=== PATIENT | female | born 1995 | race Caucasian/White ===

== ENCOUNTER 2020-11-30 19:13 | Inpatient (IN) | payer OTHER, SELFPAY ==
[2020-11-30 19:33] VITALS: BMI 36.6
[2020-11-30] MEDS: Lactated Ringers 1,000 ML 50 ML IV (19:35)
[2020-11-30 19:53] LABS: Absolute Neutrophil Count 8.8 X10^3/uL (2.0-7.7); Basophil# 0.03 X10^3/uL; Basophil% 0.2 % (0-1); Eosinophil# 0.11 X10^3/uL; Eosinophils% 0.9 % (0-5); Hematocrit 34.3 % (37-47); Hemoglobin 11.2 g/dL (12.0-15.0); Lymphocyte % 16.4 % (19-41); Mean Corp Hgb Conc 32.7 g/dL (32-36); Mean Corpuscular Hgb 27.7 pg (27.0-32.0); Mean Corpuscular Volume 84.7 fL (81-99); NRBC Flagged by Analyzer 0 % (0-5); Neutrophil # 8.84 X10^3/uL (2.7-7.7); Neutrophil % 72.8 % (47-70); Platelet Count 227 K/mm3 (150-450); RBC Distribution Width CV 13.1 % (11.6-14.6); RBC Distribution Width SD 40.3 fl (35.1-43.9); Red Blood Count 4.05 M/mm3 (4.2-5.4); White Blood Count 12.2 K/mm3 (4.4-11.0)
[2020-11-30 19:56] VITALS: BP 132/85; PULSE 87; TEMP 37.2; O2SAT 98
[2020-11-30] MEDS: miSOPROStol 25 MCG TABLET VAGINAL (20:24)
[2020-11-30 20:38] LABS: International Normalized Ratio 0.9; Prothrombin Time (Protime)PT. 11.2 SECONDS (11.7-14.9)
[2020-11-30 20:39] LABS: Partial Thromboplast Time 27.4 Seconds (24.1-36.2)
[2020-11-30 20:43] LABS: AST(SGOT) 13 U/L (15-37); Alanine Aminotransfer ALT/SGPT 33 U/L (13-56); Creatinine, Serum 0.57 mg/dL (0.55-1.02); EST Glomerular Filtration Rate 138 mL/min (>60); Est Glom Filt Rate - Afr Amer 167 mL/min (>60); Uric Acid 4.2 mg/dL (2.6-6.0)
[2020-11-30 22:57] VITALS: BP 139/91; PULSE 72; TEMP 37.4; O2SAT 98
[2020-12-01] VITALS (69 sets, daily range): BP systolic 109–141; BP diastolic 55–99; PULSE 64–195; TEMP 36.4–37.7; O2SAT 82–100
[2020-12-01] MEDS: Oxytocin 30 units/NS 500 ml 30 UNITS/500 ML IV.SOLN IV (02:14)
[2020-12-01] MEDS: 0.9% Normal Saline Single 100 ML IV.SOLN. INTRA-UTER (08:10)
[2020-12-01] MEDS: fentaNYL 100 MCG/2 ML Ampul IV ×2 (08:50→10:56)
--- NOTE | 2020-12-01 09:22 | PCM.HP.OB ---
History Date of Admission: 11/30/20 Final RJ: 12/19/20 Final RJ Source: US <20 weeks Gestational age: 37 Weeks and 3 Days History of this : This is a 25 year-old, admitted 11/30/2020 for gestational hypertension due to elevating BPs in for cervical ripening. Denies RAGSDALE, visual changes or epigastric pain. Good Fm. No VB/LOF. was uncomplicated to date. Allergies No Known Allergies Allergy (Verified 11/30/20 20:04) Home Medications: Home Medications Vits [Prenatabs FA] 1 tablet PO DAILY 11/30/20 Smoking Status: Former smoker History Past Pregnancies: Past Pregnancies Delivery Date Name GA/ Weeks Outcome Route Wt Infant Sex Labor Length Anesthesia Delivery Location Provider FOB Expected Delivery Method: Spontaneous Vaginal Review of Systems Constitutional: Denies: Anorexia, Chills, Fever Eyes: Denies: Blurred vision Cardiovascular: Denies: Chest Pain Respiratory: Denies: Cough, Shortness of Breath Gastrointestinal: Denies: Diarrhea Gynecological: Denies: Vaginal itching Skin: Denies: Rash Neurological: Denies: Balance problems, Blurred vision Hematologic/ Lymphatic: Denies: Hx of blood clot Physical Exam Vitals: Vital Signs Temp Pulse BP Pulse Ox 99.6 F H 71 138/88 H 99 12/01/20 07:17 12/01/20 08:00 12/01/20 08:00 12/01/20 08:00 General: Alert, Cooperative, No apparent distress Cardiovascular: Regular rate Lungs: Normal air movement Abdomen: Soft, Non Tender, Non-Distended, Gravid Neurological: Cranial nerves II-XII grossly intact, Neuro grossly intact SCAFFOLDING HELPER: Normal external genitalia Estimated gestational size: Appropriate for gestational size Presentation: Cephalic Assessment/Plan This is a 25 year-old, 2 para 0 now at 37-2/7 weeks gestation admitted for induction of labor. Risk benefits and alternatives to induction were discussed with patient by Dr. Curtis and patient desired to proceed. Patient had Cytotec throat ripening overnight. Now has a cervical Beaver. Will initiate Pitocin as well. Estimated weight is less than 4500 g and pelvis is clinically adequate to expect vaginal delivery. May have epidural as needed for pain control. No evidence of preeclampsia.
[2020-12-01] MEDS: Ondansetron 4 MG/2 ML Vial IV (12:50)
[2020-12-01] MEDS: Lactated Ringers 500 ML 999 ML IV (12:59)
[2020-12-01] MEDS: fentaNYL-bupivacaine (epidural) 100 ML BAG EPIDURAL ×2 (13:37→18:20)
[2020-12-01] MEDS: Lactated Ringers 1,000 ML 200 ML IV (15:46)
--- NOTE | 2020-12-01 21:35 | PLAC_PTH ---
PATIENT: JEANETH PINA LOC: [facility] U#:[id number] AGE/SX: 25/F ROOM: WP003 RE11/30/[address]: Dr. Cher Xiong MD : 1995 BED: 1 DIS: 12/03/2020 SPEC #: [id number] RECD: 12/01/20 22:19 STATUS: SVEN REMariella #: [id number] MARY KAY: 12/01/20 21:[address]: Cher Xiong DEPT: SURGICAL PATHOLOGY RECD BY: Margarita Rodriguez ENTERED: 12/02/20 06:51 SP TYPE: PLACENTA OTHR DR: No Primary Care Phys Tissues: Placenta, NOS Procedures: Surgery Specimen Level V HEADER OPERATION: Vaginal delivery PRE-OP DIAGNOSIS: Gestational hypertension TISSUE SUBMITTED: Placenta MICROSCOPIC DIAGNOSIS Placenta: Placental disc - third trimester placenta (396 gm). - Focal increased number syncytial knots and focal increased calcifications. Membranes - no pathologic diagnosis. Umbilical cord - three blood vessels and no pathologic diagnosis. SJ:jareth 12/06/2020 MICROSCOPIC DESCRIPTION Slides are reviewed. GROSS DESCRIPTION SPECIMEN: PLACENTA / CLINICAL INFORMATION: A. Weight: 2.78 kg B. Gestational Age: 37 weeks C. Sex: Female PLACENTAL WEIGHT (POST FIXATION): 396 gm PLACENTAL DIMENSIONS: 18 x 16 x 3 cm PLACENTAL SHAPE: Usual ovoid PLACENTAL WEIGHT FOR GESTATIONAL AGE: Within 10-99th percentile MEMBRANES - Present A. Insertion: Marginal B. Site of rupture from edge: 2 cm from edge of placental disc C. Color of membrane: Gibson-haney D. Abnormalities: None UMBILICAL CORD - Present A. Color: Gibson-haney B. Insertion: Eccentric and received in two fragments C. Length: 32 cm D. Diameter: 1.5 cm E. Number of vessels: Three F. Abnormalities: None PLACENTAL DISC - Present A. Color of surface: Gibson-haney B. surface abnormalities: None C. Maternal cotyledons: Intact with minimal tears D. Attached retro placental clot: No clot E. Cut surface: Dark red and spongy F. Lesions: None G. Separate clot: 7 x 5 x 1 cm SECTIONS SUBMITTED: 1. Umbilical cord ( end notched) 2. Umbilical cord, placental end 3. Membrane roll 4. Placental disc, and maternal surfaces 5. Placental disc, and maternal surfaces 6. Placental disc, and maternal surfaces AM:jareth 12/03/20 TC:5 CPT: 00308
[2020-12-01] MEDS: Oxytocin 30 units/NS 500 ml 30 UNITS/500 ML IV.SOLN 334 UNITS IV (21:36)
--- NOTE | 2020-12-01 21:49 | OP.PCM_ITS ---
Vaginal Delivery Maternal Presentation: Medically Indicated Induction Method of Induction: Pitocin, Beaver Bulb, Amniotomy, Cytotec Medical Reason for Induction: Gestational Hypertension Amniotic Membrane Rupture Type: Artificial Amniotic Fluid Description: Clear Final RJ: 12/19/20 Final RJ Source: US <20 weeks Gestational age: 37 Weeks and 3 Days Date of Procedure: 12/01/20 Pre-Operative Diagnosis: maternal exhaustion Post-Operative Diagnosis: same Surgery/ Procedure Performed: Vacuum Assisted Vaginal Delivery - outlet Type of Anesthesia: Epidural Description of Procedure: The patient was complete and pushing for 3-1/2 hours. She pushed to plus 4 out of 5 station and was labia with maternal pushing efforts. There is moderate caput. Position was CRISTOBAL. Head was slightly asynclitic. Estimated fet al weight was less than 4000 g clinically and pelvis was clinically adequate to expect vaginal delivery. Beaver catheter is in place. Epidural was adequate. Response alternatives to trial of vacuum were discussed with the patient and her partner and they desire to proceed. The vacuum was placed on the flexion point and pressure was created 550 mmHg. I pulled with 2 contractions and 1 pop -off. The vacuum was replaced then pulled with 2 more contractions to and the vacuum was removed. Mander the was delivered with maternal pushing efforts only. A vigorous female infant was delivered CRISTOBAL over a second-degree perineal laceration. The remainder the infant was delivered with maternal pushing and gentle traction only in less than 15 seconds. The Pitocin infusion was initiated for active management of the third stage. The cord was clamped and cut after 1 minute. The infant was attended to by the waiting nursing staff. The placenta was delivered spontaneously and intact. The cervix and vagina were intact. The second-degree perineal laceration was repaired with 3-0 Vicryl suture in a running standard fashion. Sponge and needle counts were correct. A vaginal sweep was completed by me. Presentation: CRISTOBAL Placental Delivery Description: Spontaneous Placenta Disposition: Sent to Pathology Cord Vessel Description: 3 Vessels Cord Gases drawn per routine: ABG, VBG Cord Entanglement: None Drain: Beaver to straight drain Estimated Blood Loss: 300 Infant A gender: Female (1 minute): 8 (5 minute): 9 Episiotomy Description: None Laceration: 2nd degree - vaginal Medications given after delivery: IV Pitocin Complications: None
[2020-12-01 22:53] LABS: Pathology Specimen OB SEE PATHOLOGY REPORT
[2020-12-02] MEDS: 0.9% Saline Lock 10 ML Syringe IV (00:22)
--- NOTE | 2020-12-02 01:00 | NURSING ---
Epidural catheter removed. Blue tip intact.
[2020-12-02 02:08] VITALS: BP 133/81; PULSE 103; RESP 16; TEMP 37.1
[2020-12-02 04:08] VITALS: BP 123/81; PULSE 98; RESP 16; TEMP 37.3; O2SAT 97
[2020-12-02 04:27] LABS: Hematocrit 31.4 % (37-47); Hemoglobin 10.3 g/dL (12.0-15.0); Mean Corp Hgb Conc 32.8 g/dL (32-36); Mean Corpuscular Hgb 28.3 pg (27.0-32.0); Mean Corpuscular Volume 86.3 fL (81-99); Platelet Count 185 K/mm3 (150-450); RBC Distribution Width CV 13.1 % (11.6-14.6); RBC Distribution Width SD 40.4 fl (35.1-43.9); Red Blood Count 3.64 M/mm3 (4.2-5.4); White Blood Count 16.5 K/mm3 (4.4-11.0)
--- NOTE | 2020-12-02 07:20 | PCM.PN.OB ---
Subjective: pain well controlled, average lochia - Physical Exam Vitals/I&O's: Vital Signs Temp Pulse Resp BP Pulse Ox 99.1 F 98 16 123/81 H 97 12/02/20 04:08 12/02/20 04:08 12/02/20 04:08 12/02/20 04:08 12/02/20 04:08 Oxygen Delivery Method Room Air Weight: 82.372 kg Body Mass Index (BMI) 36.6 Intake and Output for Last 24 Hours 11/30/20 12/01/20 12/02/20 23:59 23:59 23:59 Intake Total 54.17 / 54.17 3341.66 / 3341.66 333 / 333 Output Total 1000 / 1000 200 / 200 Balance 54.17 / 54.17 2341.66 / 2341.66 133 / 133 General: Alert, Cooperative, No apparent distress Microbiology Past 72 Hours 11/30/20 20:20 Mucosa - Nose SARS-CoV-2 Antigen (Rapid) - Final Laboratory Results 12/02/20 04:15: WBC 16.5 H, RBC 3.64 L, Hgb 10.3 L, Hct 31.4 L, MCV 86.3, MCH 28.3, MCHC 32.8, RDW Std Deviation 40.4, RDW Coeff of Yancy 13.1, Plt Count 185, MPV 11.0 Current Medications Acetaminophen (Acetaminophen 500 Mg Tablet) 1,000 mg PO Q8H PRN PRN PRN Reason: Pain Score 1-3 Bisacodyl (Bisacodyl 10 Mg Suppository) 10 mg RC UD PRN PRN Reason: If no BM Dibucaine (Dibucaine 30 Gm Tube) 1 applic TOPICAL TID PRN PRN; Protocol PRN Reason: Discomfort Hydrocortisone (Hydrocortisone 2.5% Crm) 1 applic TOPICAL TID PRN PRN; Protocol PRN Reason: Discomfort Methylergonovine Maleate (Methylergonovine 0.2 Mg/Ml Ampul) 0.2 mg IM X1 PRN PRN Reason: Excess bleeding/uterine atony Naproxen (Naproxen 250 Mg Tablet) 500 mg PO Q8H PRN PRN PRN Reason: Pain Score 1-3 Ondansetron HCl (Ondansetron 4 Mg/2 Ml Vial) 4 mg IV Q4H PRN PRN PRN Reason: Nausea Oxycodone HCl (Oxycodone 5 Mg Tablet) 5 - 10 mg PO Q4H PRN PRN PRN Reason: Pain Score 4-10 Prochlorperazine Edisylate (Prochlorperazine 10 Mg/2 Ml Vial) 10 mg IV Q6H PRN PRN PRN Reason: NAUSEA/VOMITING Senna/Docusate Sodium (Senna/Docusate Sodium 1 Tablet) 1 - 2 tablet PO DAILY PRN PRN PRN Reason: Constipation Simethicone (Simethicone 80 Mg Tablet) 80 mg PO PCHS PRN PRN Reason: Indigestion/Stomach pain Sodium Chloride (0.9% Saline Lock 10 Ml Syringe) 5 - 15 ml IV UD PRN PRN Reason: SALINE FLUSH Last Admin: 12/02/20 00:22 Dose: 10 ml Documented by: Medical Necessity - Tobacco Use Smoking Status: Former smoker Assessment/Plan PPD#1 s/p vacuum assisted vaginal delivery. Doing well gestational htn-bp stable for now doing well
[2020-12-02 08:30] VITALS: BP 111/70; PULSE 80; RESP 18; TEMP 36.5
[2020-12-02] MEDS: Naproxen 250 MG Tablet 500 MG PO ×2 (08:34→15:51)
[2020-12-02] MEDS: Senna/Docusate Sodium 1 Tablet PO (08:35)
[2020-12-02] MEDS: Dibucaine 30 GM Tube 1 APPLIC TOPICAL (08:35)
[2020-12-02 12:00] VITALS: BP 130/53; PULSE 102; RESP 16; TEMP 36.3
[2020-12-02 16:00] VITALS: BP 117/65; PULSE 85; RESP 16; TEMP 36.3
[2020-12-02 20:07] VITALS: BP 116/67; PULSE 72; RESP 18; TEMP 36.8
[2020-12-03] MEDS: Naproxen 250 MG Tablet 500 MG PO (00:29)
[2020-12-03 02:12] VITALS: BP 115/50; PULSE 57; RESP 16; TEMP 36.1
[2020-12-03 08:00] VITALS: BP 121/73; PULSE 72; RESP 16; TEMP 36.6; O2SAT 98
--- NOTE | 2020-12-03 12:36 | PCM.PN.OB ---
Subjective: Patient seen at bedside. Feeling good. Denies any pain at this time. Ambulating and voiding without difficulty. Denies any headache, vision changes or dizziness. Blood pressures have been within normal range. going well with minimal support. Desires discharge home today. - Physical Exam Vitals/I&O's: Vital Signs Temp Pulse Resp BP Pulse Ox 97.8 F 72 16 121/73 H 98 12/03/20 08:00 12/03/20 08:00 12/03/20 08:00 12/03/20 08:00 12/03/20 08:00 Oxygen Delivery Method Room Air Weight: 181 lb 9.6 oz Body Mass Index (BMI) 36.6 Intake and Output for Last 24 Hours 12/01/20 12/02/20 12/03/20 23:59 23:59 23:59 Intake Total 3341.66 / 3341.66 333 / 333 Output Total 1000 / 1000 1100 / 1100 Balance 2341.66 / 2341.66 -767 / -767 General: Alert, Oriented x3 HEENT: Atraumatic, PERRLA, EOMI, Normocephalic Neck: Supple, No JVD, Negative Carotid Bruits Lungs: Clear to auscultation, Normal air movement Cardiovascular: Regular rate Abdomen: Soft, Non Tender, Passing Flatus Extremities: Edema - 2+ non pitting bilateral feet Skin: No rashes Musculoskeletal: No Tenderness to Palpation of Joints or Extremities Neurological: Cranial nerves II-XII grossly intact Psych/Mental Status: Normal Affect, Appropriate Microbiology Past 72 Hours 11/30/20 20:20 Mucosa - Nose SARS-CoV-2 Antigen (Rapid) - Final Current Medications Acetaminophen (Acetaminophen 500 Mg Tablet) 1,000 mg PO Q8H PRN PRN PRN Reason: Pain Score 1-3 Bisacodyl (Bisacodyl 10 Mg Suppository) 10 mg RC UD PRN PRN Reason: If no BM Dibucaine (Dibucaine 30 Gm Tube) 1 applic TOPICAL TID PRN PRN; Protocol PRN Reason: Discomfort Last Admin: 12/02/20 08:35 Dose: 1 applic Documented by: Hydrocortisone (Hydrocortisone 2.5% Crm) 1 applic TOPICAL TID PRN PRN; Protocol PRN Reason: Discomfort Methylergonovine Maleate (Methylergonovine 0.2 Mg/Ml Ampul) 0.2 mg IM X1 PRN PRN Reason: Excess bleeding/uterine atony Naproxen (Naproxen 250 Mg Tablet) 500 mg PO Q8H PRN PRN PRN Reason: Pain Score 1-3 Last Admin: 12/03/20 00:29 Dose: 500 mg Documented by: Ondansetron HCl (Ondansetron 4 Mg/2 Ml Vial) 4 mg IV Q4H PRN PRN PRN Reason: Nausea Oxycodone HCl (Oxycodone 5 Mg Tablet) 5 - 10 mg PO Q4H PRN PRN PRN Reason: Pain Score 4-10 Prochlorperazine Edisylate (Prochlorperazine 10 Mg/2 Ml Vial) 10 mg IV Q6H PRN PRN PRN Reason: NAUSEA/VOMITING Senna/Docusate Sodium (Senna/Docusate Sodium 1 Tablet) 1 - 2 tablet PO DAILY PRN PRN PRN Reason: Constipation Last Admin: 12/02/20 08:35 Dose: 1 tablet Documented by: Simethicone (Simethicone 80 Mg Tablet) 80 mg PO PCHS PRN PRN Reason: Indigestion/Stomach pain Sodium Chloride (0.9% Saline Lock 10 Ml Syringe) 5 - 15 ml IV UD PRN PRN Reason: SALINE FLUSH Last Admin: 12/02/20 00:22 Dose: 10 ml Documented by: Medical Necessity - Tobacco Use Smoking Status: Former smoker Assessment/Plan PPD 2 Vacuum assisted delivery- 2nd degree Routine care support Discharge home today
--- NOTE | 2020-12-03 12:40 | DCINST_ITS ---
Discharge Diet: No Restrictions May resume sexual activity in: 6-8 weeks Additional Instructions: If you experience any of the following, contact your healthcare provider. * Bleeding that soaks a pad every hour for 2 hours * Fever 100.4 or higher * Unrelieved incision or abdominal pain * Swelling, redness, discharge or bleeding from your incision or episiotomy site * Your incision begins to separate * Problems urinating (including inability to urinate or burning while urinating). * Visual changes * Severe headache * Flu-like symptoms * Pain or redness in one of both of your breasts * Pain, warmth, tenderness or swelling in your legs, especially the calf area * Frequent nausea and vomiting * Symptoms of depression or anxiety If you experience any of the following, call 911 or go to the nearest Emergency Room. * Chest pain * Problems breathing * Seizure activity * Partial or complete paralysis of a body part, slurred speech, weakness or drooping of the face, or a sudden inability to walk or hold your balance Allergies/Adverse Reactions: Allergies No Known Allergies Allergy (Verified 11/30/20 20:04) Medications to take at Discharge Vits [Prenatabs FA] 1 tablet PO DAILY 11/30/20 Please Follow Up With: Cher Xiong MD When: 2 weeks virtual and 6 weeks in office Primary Care Physician: Care Physician,No Primary [Primary Care Provider] - Test Results: Test results from this visit will be discussed in further detail at your follow- up appointment, if applicable. Proposed Discharge Date: 12/03/20
--- NOTE | 2020-12-03 12:40 | PCM.DCVAG ---
Discharge Diet: No Restrictions May resume sexual activity in: 6-8 weeks Additional Instructions: If you experience any of the following, contact your healthcare provider. Bleeding that soaks a pad every hour for 2 hours Fever 100.4 or higher Unrelieved incision or abdominal pain Swelling, redness, discharge or bleeding from your incision or episiotomy site Your incision begins to separate Problems urinating (including inability to urinate or burning while urinating). Visual changes Severe headache Flu-like symptoms Pain or redness in one of both of your breasts Pain, warmth, tenderness or swelling in your legs, especially the calf area Frequent nausea and vomiting Symptoms of depression or anxiety If you experience any of the following, call 911 or go to the nearest Emergency Room. Chest pain Problems breathing Seizure activity Partial or complete paralysis of a body part, slurred speech, weakness or drooping of the face, or a sudden inability to walk or hold your balance Allergies/Adverse Reactions: Allergies No Known Allergies Allergy (Verified 11/30/20 20:04) Medications to take at Discharge Vits [Prenatabs FA] 1 tablet PO DAILY 11/30/20 Please Follow Up With: Cher Xiong MD When: 2 weeks virtual and 6 weeks in office Primary Care Physician: Care Physician,No Primary [Primary Care Provider] - Test Results: Test results from this visit will be discussed in further detail at your follow-up appointment, if applicable. Proposed Discharge Date: 12/03/20
--- NOTE | 2020-12-03 13:56 | NURSING ---
[id number] discharge to home
== END 2020-12-03 13:00 | disposition home or self-care (01) | DRG 807 ==
PROVIDERS: Obstetrics & Gynecology; Admitting Provider Obstetrics & Gynecology; Referring Provider Obstetrics & Gynecology; Visit Provider Obstetrics & Gynecology
DX: O75.81 Maternal exhaustion complicating labor and delivery (principal); O13.4 Gestational [pregnancy-induced] hypertension without significant proteinuria, complicating childbirth; O70.1 Second degree perineal laceration during delivery; Z3A.37 37 weeks gestation of pregnancy; Z37.0 Single live birth; Z87.891 Personal history of nicotine dependence
CPT/HCPCS: 59025; 59050; 82565; 84450; 84460; 84550; 85025; 85027; 85610; 85730; 86850; 86900; 86901; 87426; 88307; 99218; J7120; A4216; G0378; J2405

== ENCOUNTER 2022-12-28 12:02 | Outpatient (CLI) | payer SELFPAY ==
--- NOTE | 2022-12-28 12:05 | OB.TRI.NOTE ---
HPI - General HPI Narrative JEANETH PINA, is a 27 F who presents for Celestone 12 mg IM injection. PFSH PFSH Medical History (Updated 01/03/23 @ 18:52 by Nelda Leal CNM) Anxiety Gestational HTN Home Medications vits,calcium no.78-iron fumarate-folic acid 29 mg-1 mg tablet 1 tablet PO DAILY 11/30/20 [History Last Taken 12/30/22] sertraline 25 mg tablet 25 mg PO DAILY anxiety 12/31/22 [History Last Taken 12/31/22 06:00] acetaminophen 500 mg tablet 1,000 mg PO Q6H PRN PRN Pain 1-10 Or Fever #0 tabs 01/01/23 [Rx Last Taken Unknown] Allergy/AdvReac Type Severity Reaction Status Date / Time No Known Allergies Allergy Verified 12/31/22 07:46 Social History Smoking Status: Former smoker History Elective abortions Hx Para 1 Spontaneous abortions Hx # Term Pregnancies Ectopic pregnancies Hx # Pregnancies Multiple births # of living children Assessment & Plan (1) High risk multigravida: (2) Gestational hypertension, third trimester: (3) 36 weeks gestation of : PLAN: Plan Celestone 12 mg IM x1 now Patient scheduled for induction of labor for GHTN
[2022-12-28 13:03] VITALS: BP 123/84
[2022-12-28] MEDS: Betamethasone/Betamethasone 30 MG/5 ML Vial 12 MG IM (13:07)
== END 2022-12-28 13:15 | disposition home or self-care (01) ==
LOC: WPOUT 12:11 → WP 12:12
PROVIDERS: Referring Provider Advanced Practice Midwife; Visit Provider Advanced Practice Midwife
DX: O09.93 Supervision of high risk pregnancy, unspecified, third trimester (principal); Z3A.36 36 weeks gestation of pregnancy; O16.3 Unspecified maternal hypertension, third trimester
CPT/HCPCS: 96372; J0702

== ENCOUNTER 2022-12-31 07:15 | Inpatient (IN) | payer OTHER, SELFPAY ==
[2022-12-31] VITALS (37 sets, daily range): BP systolic 107–141; BP diastolic 57–91; PULSE 71–112; RESP 16; TEMP 36.2–37.6; O2SAT 94–100; BMI 37.5
[2022-12-31 08:03] LABS: Absolute Lymphocyte Count 2.16 X10^3/uL (0.83-4.51); Absolute Neutrophil Count 5.6 X10^3/uL (2.0-7.7); Basophil# 0.02 X10^3/uL; Basophil% 0.2 % (0-1); Eosinophil# 0.09 X10^3/uL; Eosinophils% 1.1 % (0-5); Hematocrit 32.4 % (37-47); Hemoglobin 10.5 g/dL (12.0-15.0); Lymphocyte # 2.16 X10^3/ul (0.83-4.51); Lymphocyte % 25.4 % (19-41); Mean Corp Hgb Conc 32.4 g/dL (32-36); Mean Corpuscular Hgb 26.1 pg (27.0-32.0); Mean Corpuscular Volume 80.6 fL (81-99); Monocyte# 0.61 X10^3/uL; Monocyte% 7.2 % (0-10); NRBC Flagged by Analyzer 0 % (0-5); Neutrophil # 5.58 X10^3/uL (2.7-7.7); Neutrophil % 65.4 % (47-70); Platelet Count 215 K/mm3 (150-450); RBC Distribution Width CV 13.8 % (11.6-14.6); RBC Distribution Width SD 40.3 fl (35.1-43.9); Red Blood Count 4.02 M/mm3 (4.2-5.4); White Blood Count 8.5 K/mm3 (4.4-11.0)
[2022-12-31 08:40] LABS: Syphilis Antibodies Non-reactive
[2022-12-31] MEDS: Lactated Ringers 1,000 ML 50 ML IV (09:04)
[2022-12-31] MEDS: Oxytocin 15 Units/NS 250ml 15 UNITS/250 ML IV.SOLN 2 UNITS IV (09:11)
--- NOTE | 2022-12-31 09:37 | PCM.HP.OB ---
HPI - General General Date of Admission: 12/31/22 Date of Service: 12/31/22 Chief Complaint: 37 weeks, elevated BP HPI Narrative JEANETH PINA, is a 27-year-old 3 para 1-0-1-1 who presents at 37-0/7 weeks gestation with a EDC of 01/21/2023 for induction of labor due to gestational hypertension. She denies RAGSDALE or visual changes. Maternal Data Information Final RJ: 01/21/23 Gestational age: 37 0/7 [facility] Medical History (Updated 12/31/22 @ 09:[address] Cher Xiong MD) Anxiety Gestational HTN Home Medications vits,calcium no.78-iron fumarate-folic acid 29 mg-1 mg tablet 1 tablet PO DAILY 11/30/20 [History Last Taken 12/30/22] aspirin 81 mg capsule 81 mg PO DAILY ghtn 12/31/22 [History Last Taken 12/30/22 09:00] labetalol 100 mg tablet 100 mg PO BID ghtn 12/31/22 [History Last Taken 12/30/22 09:00] sertraline 25 mg tablet 25 mg PO DAILY anxiety 12/31/22 [History Last Taken 12/31/22 06:00] Allergy/AdvReac Type Severity Reaction Status Date / Time No Known Allergies Allergy Verified 12/31/22 07:46 Social History Smoking Status: Former smoker History Elective abortions Hx Para 1 Spontaneous abortions Hx # Term Pregnancies Ectopic pregnancies Hx # Pregnancies Multiple births # of living children ROS Constitutional Constitutional: Denies fatigue, fever(s) or malaise Eyes Eyes: Denies change in vision ENT HEENT: Denies dizziness or headache(s) Cardiovascular Cardiovascular: Denies chest pain, dyspnea or lightheadedness Respiratory/Chest Respiratory/Chest: Denies cough or dyspnea Gastrointestinal Gastrointestinal: Denies change in bowel habits Genitourinary Genitourinary: Denies burning urination or genital lesions Integumentary Integumentary: Denies rash Neurologic Neurologic: Denies confusion, dizziness, headache(s), numbness or weakness Vital Signs Vital Signs Vital Signs: 12/31/22 07:50 12/31/22 07:51 12/31/22 07:51 Temperature 98.2 F Pulse Rate 107 H Blood Pressure 140/83 H BP Systolic 140 BP Diastolic 83 Pulse Ox 12/31/22 07:50 12/31/22 09:19 12/31/22 09:19 Temperature Pulse Rate 93 Blood Pressure 136/91 H BP Systolic 136 BP Diastolic 91 Pulse Ox 98 Weight Weight: 84.2 kg Body Mass Index (BMI) 37.5 Physical Exam Const alert and no apparent distress General Appearance: cooperative HEENT normocephalic Resp normal respiratory effort Cardio regular rate GI soft to palpation GI Narrative: gravid, nontender, appropriate for gestational age Extremity no calf tenderness General Extremity: edema Skin no wounds Rashes: No rashes noted Psych activity/motor behavior normal Labs Labs Labs: Blood Type A POSITIVE Antibody Screen NEGATIVE Hct 32.4 % (37-47) L Hgb 10.5 g/dL (12.0-15.0) L Syphilis Total Ab Non-reactive Rhogam given: No Assessment & Plan (1) 37 weeks gestation of : PLAN: Risk benefits and alternatives to induction labor him discussed with the patient, her questions were answered to her satisfaction she desires to proceed. She has gestational hypertension without evidence of preeclampsia. Cervix is 2-1/2, 70, -2 station. Artificial rupture membranes was reviewed performed with return of moderate amount of clear fluid. We will proceed with Pitocin and artificial rupture membrane induction of labor. Estimated weight is less than 4500 g clinically and pelvis clinically adequate to expect vaginal delivery. May have epidural or other routine pain management measures as desired. (2) High risk multigravida: (3) Gestational hypertension, third trimester:
[2022-12-31] MEDS: LACTATED RINGERS 500 ML 999 ML IV (13:00)
[2022-12-31] MEDS: Ondansetron 4 MG/2 ML Vial IV (13:23)
[2022-12-31] MEDS: fentaNYL-bupivacaine (epidural) 100 ML BAG EPIDURAL (14:04)
--- NOTE | 2022-12-31 16:49 | EX.PCM.OBRPT ---
Assessment & Plan (1) (spontaneous vaginal delivery): Maternal Data Information Final RJ: 01/21/23 Gestational age: 37 0/7 Vaginal Delivery Maternal Presentation Maternal Presentation: Medically Indicated Induction Type of Induction: Pitocin and Amniotomy Operative Information Date of Procedure: 12/31/22 Pre-Operative Diagnosis: labor Post-Operative Diagnosis: same Surgery / Procedure Performed: Spontaneous Vaginal Delivery Type of Anesthesia: Epidural Special Medications: none Drain: Beaver to straight drain Estimated Blood Loss: 300 Time of Delivery: 14:34 Findings Description of Procedure: A vigorous male was delivered CRISTOBAL over a second-degree perineal laceration. The remainder the infant was delivered with maternal pushing and gentle traction only in less than 15 seconds. The Pitocin infusion was initiated for active management of the third stage. The cord was clamped and cut after cord pulsations ceased. The infant was attended to by the waiting nursing staff. The placenta was delivered spontaneously and intact. The cervix and vagina were intact. The second-degree perineal laceration was repaired with 2-0 Vicryl suture in a running standard fashion. Sponge and needle counts were correct. A vaginal sweep was completed by me. Presentation: CRISTOBAL Amniotic Membrane Rupture Type: Artificial Amniotic Fluid Description: Clear Placental Delivery Description: Spontaneous Placenta Disposition: [facility] Cord Vessel Description: 3 Vessels Cord Entanglement: None Infant A Gender: Male (Saeed) (1 minute): 9 (5 minute): 9 Delayed Cord Clamping: Yes Post Vaginal Delivery Medications Given After Delivery: IV Pitocin Episiotomy Description: None Laceration: 2nd degree Complication Complications: None
[2022-12-31] MEDS: Oxytocin 15 Units/NS 250ml 15 UNITS/250 ML IV.SOLN 83 UNITS IV (17:10)
[2022-12-31] MEDS: Ibuprofen 600 MG Tablet PO (18:15)
--- NOTE | 2022-12-31 19:43 | NURSING ---
pt up oob up to bathroom to void; pericare demonstrated; pt gait steady
[2023-01-01] VITALS (7 sets, daily range): BP systolic 123–140; BP diastolic 73–81; PULSE 68–76; RESP 16; TEMP 36.3–36.9
--- NOTE | 2023-01-01 07:55 | PCM.PROGNOTE ---
Subjective Subjective patient seen at bedside, doing well. Patient reports good pain control. lochia mild. denies RAGSDALE or visual changes. Objective Data Objective Data Vital Signs: Vital Signs Temp Pulse Resp BP Pulse Ox 98.4 F 72 16 135/73 H 100 01/01/23 04:21 01/01/23 04:21 01/01/23 04:21 01/01/23 04:21 12/31/22 14:38 Weight: 84.2 kg Body Mass Index (BMI) 37.5 Intake & Output: Intake and Output for Last 24 Hours 12/30/22 12/31/22 01/01/23 23:59 23:59 23:59 Intake Total 1725.93 / 1725.93 Output Total 450 / 450 Balance 1275.93 / 1275.93 Lab / Micro Data Result Diagrams: 12/31/22 07:35 Labs: Laboratory Results - last 24 hr 12/31/22 07:35: WBC 8.5, RBC 4.02 L, Hgb 10.5 L, Hct 32.4 L, MCV 80.6 L, MCH 26.1 L, MCHC 32.4, RDW Std Deviation 40.3, RDW Coeff of Yancy 13.8, Plt Count 215, MPV 12.0, Immature Gran % (Auto) 0.700, Neut % (Auto) 65.4, Lymph % (Auto) 25.4, [place] % (Auto) 7.2, Eos % (Auto) 1.1, Baso % (Auto) 0.2, Absolute Neuts (auto) 5.6, Absolute Lymphs (auto) 2.16, Nucleated RBC % 0 12/31/22 07:35: Blood Type A POSITIVE, Antibody Screen NEGATIVE 12/31/22 07:35: Syphilis Total Ab Non-reactive Physical Exam Const alert and oriented x3 General Appearance: cooperative HEENT normocephalic Neck General: normal visual inspection GI soft to palpation and non-distended GI Narrative: Fundus firm Extremity normal to inspection and no calf tenderness Skin no rashes or lesions noted Neuro oriented x3 and CN's II-XII intact bilaterally Psych mental status grossly normal Assessment & Plan Assessment/Plan (1) (spontaneous vaginal delivery): (2) Gestational hypertension, third trimester: PLAN: Plan PPD# 1 , Doing well Routine care pain mgmt ambulation dc home- follow up in one week, continue to montior BP at home s/sx pre e reviewed with Patient
--- NOTE | 2023-01-01 07:57 | DCINST_ITS ---
Discharge Instructions Procedure Vaginal Delivery Diet Discharge Diet: No restrictions Activity May resume sexual activity in: 6-8 weeks Dressing / Incision Call your doctor if you observe: Fever of 101 or Higher, Inability to urinate, Using more than 1 pad per hour and Uncontrolled pain Follow Up Care Please Follow Up With: Saundra Gonzalez MD When: 1-2 weeks post and again at 6 weeks post . [phone] Test Results: Test results from this visit will be discussed in further detail at your follow- up appointment, if applicable. Discharge Plan Admission Admit Date/Time: 12/31/22 07:15 Attending Provider: Danyell Maria Primary Care Provider: Fabien Alvarez Discharge Orders/Prescriptions Prescriptions: New acetaminophen 500 mg Tablet 1,000 mg PO Q6H PRN PRN (Reason: Pain 1-10 Or Fever) Qty: 0 0RF Continued [id number] 1 TABLET tablet 1 tablet PO DAILY sertraline 25 mg tablet 25 mg PO DAILY Label Comments: take 1 tablet by mouth once daily Discontinued labetalol 100 mg tablet 100 mg PO BID aspirin 81 mg Capsule 81 mg PO DAILY Referrals / Follow Up: Fabien Alvarez MD [Primary Care Provider] - Disposition Disposition (needs filled in before D/C Order can be placed): Home, Self Care
== END 2023-01-01 18:18 | disposition home or self-care (01) | DRG 807 ==
PROVIDERS: Admitting Provider Obstetrics & Gynecology; PCP Family Medicine; Visit Provider Advanced Practice Midwife
DX: O13.4 Gestational [pregnancy-induced] hypertension without significant proteinuria, complicating childbirth (principal); Z37.0 Single live birth; O70.1 Second degree perineal laceration during delivery; Z79.82 Long term (current) use of aspirin; Z87.891 Personal history of nicotine dependence; Z3A.37 37 weeks gestation of pregnancy
CPT/HCPCS: 59025; 59050; 85025; 86780; 86850; 86900; 86901; 99221; J7120; G0378; J2405